=== PATIENT | male | born 1935 | race Caucasian/White ===

== ENCOUNTER 2017-07-23 15:01 | Outpatient (CLI) | payer MEDICARE, BC ==
[2017-07-23 15:36] LABS: ALT (SGPT) 36 U/L (8-55); AST (SGOT) 48 U/L (5-34); Albumin 3.6 g/dL (3.4-4.8); Alkaline Phosphatase 187 U/L (40-150); Anion Gap 17 mmol/L (10-20); BUN (Urea Nitrogen) 12 mg/dL (8.4-25.7); Bilirubin, Total 0.7 mg/dL (0.2-1.2); Calc. Creatinine Clearance 0 mL/min (70-130); Calcium 9.8 mg/dL (7.8-10.44); Carbon Dioxide 27 mmol/L (23-31); Chloride 94 mmol/L (98-107); Estimated GFR-MDRD 71; Globulin 3.9 g/dL (2.4-3.5); Glucose 96 mg/dL (83-110); Potassium 4.2 mmol/L (3.5-5.1); Protein, Total 7.5 g/dL (5.8-8.1); Sodium 134 mmol/L (136-145)
--- NOTE | 2017-07-23 15:51 | RAD ---
ABDOMEN ONE VIEW: 07/23/17 HISTORY: Abdominal pain. FINDINGS: Gas and stool are apparent within the colon and rectum. Small bowel gas pattern is nonspecific. Phleb oliths project over the lower abdomen and the pelvis. 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 IMPRESSION: Nonspecific bowel gas pattern. No significant abnormalities are demonstrated. POS: [facility]
[2017-07-23 16:13] LABS: Band 2 % (5-11); Hemoglobin 14.1 g/dL (14.0-18.0); Lymphocytes 31 % (21-51); MDiff Complete? YES; Mean Corpuscular HGB CONC 33.9 g/dL (32.0-36.0); Mean Corpuscular Hemoglobin 31.2 pg (27.0-31.0); Mean Platelet Volume 7.8 fL (7.4-10.4); Monocytes 4 % (0-10); Neutrophil 56 % (42-75); PLT Morphology Comment Appears Increased; Platelet Count 457 thou/uL (130-400); RBC Distribution Width 11.8 % (11.5-14.5); Reactive Lymphocytes 7 % (0-10); Red Blood Cell (RBC) Count 4.53 mill/uL (4.70-6.10); White Blood Cell (WBC) Count 9.6 thou/uL (4.8-10.8)
== END 2017-07-23 15:02 | disposition home or self-care (01) ==
LOC: SCSRAD 15:01
PROVIDERS: ATTEND Internal Medicine
DX: R10.32 Left lower quadrant pain (principal); K57.90 Diverticulosis of intestine, part unspecified, without perforation or abscess without bleeding; R50.9 Fever, unspecified; R53.83 Other fatigue
CPT/HCPCS: 36415; 74018; 80053; 85007; 85027

== ENCOUNTER 2017-07-27 07:34 | Outpatient (CLI) | payer MEDICARE, BC ==
[2017-07-27] MEDS ORDERED: ISOVUE-370 76%-LOCM 1 ML ONE (13:36)
== END 2017-07-27 07:35 | disposition home or self-care (01) ==
LOC: BICCT 07:34
PROVIDERS: ATTEND Internal Medicine
DX: K57.90 Diverticulosis of intestine, part unspecified, without perforation or abscess without bleeding (principal); R50.9 Fever, unspecified; R10.32 Left lower quadrant pain; J90 Pleural effusion, not elsewhere classified; J98.11 Atelectasis; K76.89 Other specified diseases of liver; R59.0 Localized enlarged lymph nodes; R16.1 Splenomegaly, not elsewhere classified
CPT/HCPCS: 74177